=== PATIENT | female | born 1995 | race Caucasian/White ===

== ENCOUNTER 2020-03-09 09:29 | Inpatient (IN) | payer MEDICAID ==
[2020-03-09] MEDS ORDERED: Sodium Chloride 0.9% 2.5 ML Syringe FLUSH PRN (13:37)
[2020-03-09] MEDS ORDERED: Sodium Chloride 0.9% 10 ML SDV IV PRN (13:37)
[2020-03-09] MEDS ORDERED: Nalbuphine 10 MG/1 ML Vial IVPUSH PRN (13:37)
[2020-03-09] MEDS ORDERED: Tranexamic Acid 1,000 MG in Sodium Chloride 0.9% 100 ML IV PRN ×2 (13:37→23:15)
[2020-03-09] MEDS ORDERED: Carboprost Tromethamine 250 MCG/1 ML Amp IM PRN (13:37)
[2020-03-09] MEDS ORDERED: Sodium Chloride 0.9% 10 ML Syringe FLUSH PRN (13:37)
[2020-03-09] MEDS ORDERED: Misoprostol 200 MCG Tab PO PRN (13:37)
[2020-03-09] MEDS ORDERED: Methylergonovine 0.2 MG/1 ML Amp IM PRN ×2 (13:37→23:15)
[2020-03-09] MEDS ORDERED: Lidocaine 1% 50 ML MDV INJECT PRN (13:37)
[2020-03-09] MEDS ORDERED: Butorphanol 1 MG/ML SDV IVPUSH PRN (13:37)
[2020-03-09] MEDS ORDERED: Water For Irrigation,Sterile 1,000 ML Container IRR PRN (13:37)
[2020-03-09] MEDS ORDERED: Oxytocin/0.9 % Sodium Chloride 30 UNIT/500 ML BAG IV SCH ×2 (13:45→20:15)
[2020-03-09] MEDS ORDERED: Ampicillin 2 GM in Sodium Chloride 0.9% 100 ML IV ONE (14:00)
[2020-03-09] MEDS: Lactated Ringers 1,000 ML IV SCH ×4 (14:05→19:36)
--- NOTE | 2020-03-09 14:10 | HP ---
DATE OF : 1995 PRIMARY CARE PHYSICIAN: None PCP CHIEF COMPLAINT: Contractions. HISTORY OF PRESENT ILLNESS: This is a 24-year-old female, G3, P 2-0-0-2. She presents at 38-6/7 weeks' gestation in active spontaneous labor. No loss of fluid. Good movement. She has had no care save for one visit in [place] where she states that she did have labs drawn as well as an ultrasound which confirmed her due date. Those records have been requested, but are pending. She has not had any group B strep culture obtained. She has had two prior vaginal deliveries, which have been uncomplicated. PAST MEDICAL HISTORY: Significant for MRSA on her right thigh and a recent tooth abscess. PAST SURGICAL HISTORY: I and D of a skin lesion. ALLERGIES: None known. MEDICATIONS: Keflex 500 mg t.i.d. for a tooth abscess. SOCIAL HISTORY: She is single, sexually active. She denies use of alcohol or street drugs. She does smoke less than a pack per day. She denies any concern about domestic violence. She has a 1 and a 2-year-old, both of whom are in her custody. The older child has the same father of the baby as this . FAMILY HISTORY: Negative for genetic disorders affecting newborns. REVIEW OF SYSTEMS: Negative for headache, visual changes. Negative for cough, shortness of breath, chest pain, dyspnea on exertion. Negative for dermatologic changes. Negative for GI, , rheumatologic, or musculoskeletal issues. PHYSICAL EXAMINATION: VITAL SIGNS: Blood pressure is 117/68, pulse is 114. heart tones are 120s with moderate variability, accelerations present, no decelerations. Contractions are every 5 to 7 minutes. GENERAL: She is alert and oriented. She is in no acute distress. NECK: Supple without lymphadenopathy or thyromegaly. LUNGS: Clear bilaterally. CARDIOVASCULAR: Regular rate without murmur. ABDOMEN: Soft, gravid, nontender. Fundal height is appropriate for gestational age. EXTREMITIES: Show trace edema. VAGINAL EXAM: 5 cm, 80%, minus 2 station. Cephalic presentation. ASSESSMENT AND PLAN: A 38-6/7 weeks' active spontaneous labor with essentially no care. Records from one visit in [place] have been obtained. New OB labs will be obtained upon admission. Group B strep culture is obtained upon admission, and she will be started on ampicillin for group B strep prophylaxis. She requests epidural, and once laboratory studies are available, this can be initiated. Admit for labor management. DORY / LEZA /[id number]
--- NOTE | 2020-03-09 15:12 | PCM.PREANE ---
Preanesthetic Assessment - Anesthesia/Transfusion/Family Hx Anesthesia History: No Prior Anesthesia Family History of Anesthesia Reaction: No Transfusion History: No Prior Transfusion(s) - Review of Systems General: No Symptoms Pulmonary: No Symptoms Cardiovascular: No Symptoms Gastrointestinal: No Symptoms Neurological: No Symptoms Other: Reports: None - Physical Assessment Height: 5 ft Weight: 79.379 kg (estimate) ASA Class: 2 Mental Status: Alert & Oriented x3 Airway Class: Mallampati = 1 Dentition: Reports: Normal Dentition Thyro-Mental Finger Breadths: 3 ROM/Head Extension: Full Lungs: Clear to Auscultation, Normal Respiratory Effort Cardiovascular: Regular Rate, Regular Rhythm Other: - 38 weeks in spontaneous labor - Lab Values: Laboratory Last Values WBC 18.42 K/uL (4.0-11.0) H 03/09/20 13:20 RBC 4.29 M/uL (4.30-5.90) L 03/09/20 13:20 Hgb 10.0 g/dL (12.0-16.0) L 03/09/20 13:20 Hct 32.7 % (36.0-46.0) L 03/09/20 13:20 MCV 76.2 fL (80.0-98.0) L 03/09/20 13:20 MCH 23.3 pg (27.0-32.0) L 03/09/20 13:20 MCHC 30.6 g/dL (31.0-37.0) L 03/09/20 13:20 RDW Std Deviation 44.5 fl (28.0-62.0) 03/09/20 13:20 RDW Coeff of Sander 16 % (11.0-15.0) H 03/09/20 13:20 Plt Count 229 K/uL (150-400) 03/09/20 13:20 MPV 11.40 fL (7.40-12.00) 03/09/20 13:20 Add Manual Diff YES 03/09/20 13:20 Neutrophils % (Manual) 68 % (48.0-80.0) 03/09/20 13:20 Band Neutrophils % 1 % 03/09/20 13:20 Lymphocytes % (Manual) 17 % (16.0-40.0) 03/09/20 13:20 Monocytes % (Manual) 7 % (0.0-15.0) 03/09/20 13:20 Eosinophils % (Manual) 1 % (0.0-7.0) 03/09/20 13:20 Basophils % (Manual) 2 % (0.0-1.5) H 03/09/20 13:20 Metamyelocytes % 1 % 03/09/20 13:20 Myelocytes % 3 % 03/09/20 13:20 Nucleated RBC % 0.0 /100WBC 03/09/20 13:20 Absolute Seg Neuts 12.5 (1.4-5.7) H 03/09/20 13:20 Band Neutrophils # 0.2 03/09/20 13:20 Lymphocytes # (Manual) 3.1 (0.6-2.4) H 03/09/20 13:20 Monocytes # (Manual) 1.3 (0.0-0.8) H 03/09/20 13:20 Eosinophils # (Manual) 0.2 (0.0-0.7) 03/09/20 13:20 Basophils # (Manual) 0.4 (0.0-0.1) H 03/09/20 13:20 Absolute Metamyelocyte 0.2 03/09/20 13:20 Absolute Myelocytes 0.6 03/09/20 13:20 Nucleated RBCs # 0 K/uL 03/09/20 13:20 - Allergies Allergies/Adverse Reactions: Allergies Allergy/AdvReac Type Severity Reaction Status Date / Time No Known Allergies Allergy Verified 03/09/20 13:41 - Acknowledgements Anesthesia Type Planned: Epidural Pt an Appropriate Candidate for the Planned Anesthesia: Yes Alternatives and Risks of Anesthesia Discussed w Pt/Guardian: Yes Pt/Guardian Understands and Agrees with Anesthesia Plan: Yes PreAnesthesia Questionnaire - CURRENT (IN HOUSE) MEDS Current Meds: Current Medications Butorphanol Tartrate (Stadol) 1 mg IVPUSH Q1H PRN PRN Reason: Pain Carboprost Tromethamine (Hemabate Ds) 250 mcg IM ASDIRECTED PRN PRN Reason: Post Hemorrhage Ampicillin Sodium 1 gm/ Sodium (Chloride) 50 mls @ 100 mls/hr IV Q4H [facility] Tranexamic Acid 1,000 mg/ (Sodium Chloride) 110 mls @ 660 mls/hr IV ONETIME PRN PRN Reason: Bleeding Lactated Ringer's (Ringers, Lactated) 1,000 mls @ 150 mls/hr IV ASDIRECTED [facility] Last Admin: 03/09/20 14:05 Dose: 500 mls/hr Oxytocin/Sodium Chloride (Oxytocin 30 Unit/500 Ml-Ns) 30 unit in 500 mls @ 999 mls/hr IV TITRATE [facility] Lidocaine HCl (Xylocaine 1%) 50 ml INJECT ONETIME PRN PRN Reason: Laceration repair Methylergonovine Maleate (Methergine) 0.2 mg IM ASDIRECTED PRN PRN Reason: Post Hemorrhage Misoprostol (Cytotec) 200 mcg PO ONETIME PRN PRN Reason: Post Hemorrhage Nalbuphine HCl (Nubain) 10 mg IVPUSH Q1H PRN PRN Reason: Pain (severe 7-10) Sodium Chloride (Saline Flush) 10 ml FLUSH ASDIRECTED PRN PRN Reason: Keep Vein Open Sodium Chloride (Saline Flush) 2.5 ml FLUSH ASDIRECTED PRN PRN Reason: Keep Vein Open Sodium Chloride (Normal Saline) 10 ml IV ASDIRECTED PRN PRN Reason: IV Use Sterile Water (Sterile Water For Irrigation) 1,000 ml IRR ASDIRECTED PRN PRN Reason: delivery Discontinued Medications Ampicillin Sodium 2 gm/ Sodium (Chloride) 100 mls @ 200 mls/hr IV ONETIME ONE Stop: 03/09/20 14:29 Fentanyl/Bupivacaine HCl (Iehxowhn-Tcfht-Uq 2 Mcg/Ml-0.125%) Confirm Administered Dose 100 mls @ as directed .ROUTE .STK-MED ONE Stop: 03/09/20 14:31
[2020-03-09] MEDS: Ampicillin 1 GM in Sodium Chloride 0.9% 50 ML IV SCH (19:05)
--- NOTE | 2020-03-09 23:14 | PCM.DEL ---
L & D Note - General Info Date of Service: 03/09/20 Mother's Due Date: 03/17/20 - Delivery Note Labor: Spontaneous, Augmented by Oxytocin Delivery Outcome: Livebirth Infant Delivery Method: Spontaneous Vaginal Delivery-Single Infant Delivery Mode: Spontaneous Presentation: Left Occiput Anterior (DOUG) Nuchal Cord: None Prep: Other Anesthesia Type: Epidural, Local Local Anesthetic Volume: 5cc Amniotic Fluid Description: Clear Episiotomy Type: None Laceration: 1st Degree Suture type: Vicryl Suture size: 3-0 Placenta: Intact, Spontaneous Cord: 3 Vessels Estimated Blood Loss: 200 Resuscitation Needed: No : Suctioned Score 1 min: 8 Score 5 min: 9 Delivery Comments (Free Text/Narrative):: presented with minimal care ([place]), active labor, augmented, TSVD liveborn female weight 3120 grams. - General Info Date of Service: 03/09/20 - Patient Data Weight - Most Recent: 68.946 kg Lab Results Last 24 Hours: Laboratory Results - last 24 hr 03/09/20 03/09/20 03/09/20 Range/Units 09:35 09:35 13:20 WBC 18.42 H (4.0-11.0) K/uL RBC 4.29 L (4.30-5.90) M/uL Hgb 10.0 L (12.0-16.0) g/dL Hct 32.7 L (36.0-46.0) % MCV 76.2 L (80.0-98.0) fL MCH 23.3 L (27.0-32.0) pg MCHC 30.6 L (31.0-37.0) g/dL RDW Std Deviation 44.5 (28.0-62.0) fl RDW Coeff of Sander 16 H (11.0-15.0) % Plt Count 229 (150-400) K/uL MPV 11.40 (7.40-12.00) fL Add Manual Diff YES Neutrophils % (Manual) 68 (48.0-80.0) % Band Neutrophils % 1 % Lymphocytes % (Manual) 17 (16.0-40.0) % Monocytes % (Manual) 7 (0.0-15.0) % Eosinophils % (Manual) 1 (0.0-7.0) % Basophils % (Manual) 2 H (0.0-1.5) % Metamyelocytes % 1 % Myelocytes % 3 % Nucleated RBC % 0.0 /100WBC Absolute Seg Neuts 12.5 H (1.4-5.7) Band Neutrophils # 0.2 Lymphocytes # (Manual) 3.1 H (0.6-2.4) Monocytes # (Manual) 1.3 H (0.0-0.8) Eosinophils # (Manual) 0.2 (0.0-0.7) Basophils # (Manual) 0.4 H (0.0-0.1) Absolute Metamyelocyte 0.2 Absolute Myelocytes 0.6 Nucleated RBCs # 0 K/uL Urine Color YELLOW Urine Appearance HAZY Urine pH 7.0 (5.0-8.0) Ur Specific [place] 1.010 (1.001-1.035) Urine Protein NEGATIVE (NEGATIVE) mg/dL Urine Glucose (UA) NEGATIVE (NEGATIVE) mg/dL Urine Ketones NEGATIVE (NEGATIVE) mg/dL Urine Occult Blood TRACE-INTACT H (NEGATIVE) Urine Nitrite NEGATIVE (NEGATIVE) Urine Bilirubin NEGATIVE (NEGATIVE) Urine Urobilinogen 0.2 (<2.0) EU/dL Ur Leukocyte Esterase SMALL H (NEGATIVE) Urine Opiates Screen NEGATIVE (NEGATIVE) Ur Oxycodone Screen NEGATIVE (NEGATIVE) Urine Methadone Screen NEGATIVE (NEGATIVE) Ur Barbiturates Screen NEGATIVE (NEGATIVE) Ur Phencyclidine Scrn NEGATIVE (NEGATIVE) Ur Amphetamine Screen NEGATIVE (NEGATIVE) U Methamphetamines Scrn NEGATIVE (NEGATIVE) U Benzodiazepines Scrn NEGATIVE (NEGATIVE) U Cocaine Metab Screen NEGATIVE (NEGATIVE) U Marijuana (THC) Screen POSITIVE (NEGATIVE) Hep Bs Antigen Index (<1.0) INDEX Hep Bs Antibody Index mIU/mL HIV 1&2 Ag/Ab, 4th Gen (<1.0) INDEX Rubella IgG Ab Index IU/mL Blood Type Antibody Screen 03/09/20 03/09/20 Range/Units 13:20 13:20 WBC (4.0-11.0) K/uL RBC (4.30-5.90) M/uL Hgb (12.0-16.0) g/dL Hct (36.0-46.0) % MCV (80.0-98.0) fL MCH (27.0-32.0) pg MCHC (31.0-37.0) g/dL RDW Std Deviation (28.0-62.0) fl RDW Coeff of Sander (11.0-15.0) % Plt Count (150-400) K/uL MPV (7.40-12.00) fL Add Manual Diff Neutrophils % (Manual) (48.0-80.0) % Band Neutrophils % % Lymphocytes % (Manual) (16.0-40.0) % Monocytes % (Manual) (0.0-15.0) % Eosinophils % (Manual) (0.0-7.0) % Basophils % (Manual) (0.0-1.5) % Metamyelocytes % % Myelocytes % % Nucleated RBC % /100WBC Absolute Seg Neuts (1.4-5.7) Band Neutrophils # Lymphocytes # (Manual) (0.6-2.4) Monocytes # (Manual) (0.0-0.8) Eosinophils # (Manual) (0.0-0.7) Basophils # (Manual) (0.0-0.1) Absolute Metamyelocyte Absolute Myelocytes Nucleated RBCs # K/uL Urine Color Urine Appearance Urine pH (5.0-8.0) Ur Specific [place] (1.001-1.035) Urine Protein (NEGATIVE) mg/dL Urine Glucose (UA) (NEGATIVE) mg/dL Urine Ketones (NEGATIVE) mg/dL Urine Occult Blood (NEGATIVE) Urine Nitrite (NEGATIVE) Urine Bilirubin (NEGATIVE) Urine Urobilinogen (<2.0) EU/dL Ur Leukocyte Esterase (NEGATIVE) Urine Opiates Screen (NEGATIVE) Ur Oxycodone Screen (NEGATIVE) Urine Methadone Screen (NEGATIVE) Ur Barbiturates Screen (NEGATIVE) Ur Phencyclidine Scrn (NEGATIVE) Ur Amphetamine Screen (NEGATIVE) U Methamphetamines Scrn (NEGATIVE) U Benzodiazepines Scrn (NEGATIVE) U Cocaine Metab Screen (NEGATIVE) U Marijuana (THC) Screen (NEGATIVE) Hep Bs Antigen Index < 0.1 (<1.0) INDEX Hep Bs Antibody Index 8.0 mIU/mL HIV 1&2 Ag/Ab, 4th Gen < 0.1 (<1.0) INDEX Rubella IgG Ab Index 191.0 IU/mL Blood Type A POSITIVE Antibody Screen NEGATIVE Med Orders - Current: Current Medications Butorphanol Tartrate (Stadol) 1 mg IVPUSH Q1H PRN PRN Reason: Pain Carboprost Tromethamine (Hemabate Ds) 250 mcg IM ASDIRECTED PRN PRN Reason: Post Hemorrhage Ampicillin Sodium 1 gm/ Sodium (Chloride) 50 mls @ 100 mls/hr IV Q4H [facility] Last Admin: 03/09/20 19:05 Dose: 100 mls/hr Tranexamic Acid 1,000 mg/ (Sodium Chloride) 110 mls @ 660 mls/hr IV ONETIME PRN PRN Reason: Bleeding Lactated Ringer's (Ringers, Lactated) 1,000 mls @ 150 mls/hr IV ASDIRECTED [facility] Last Admin: 03/09/20 19:36 Dose: 150 mls/hr Oxytocin/Sodium Chloride (Oxytocin 30 Unit/500 Ml-Ns) 30 unit in 500 mls @ 999 mls/hr IV TITRATE [facility] Oxytocin/Sodium Chloride (Oxytocin 30 Unit/500 Ml-Ns) 30 unit in 500 mls @ 2 mls/hr IV TITRATE [facility]; Protocol Last Infusion: 03/09/20 21:52 Dose: 8 munits/min, 8 mls/hr Lidocaine HCl (Xylocaine 1%) 50 ml INJECT ONETIME PRN PRN Reason: Laceration repair Methylergonovine Maleate (Methergine) 0.2 mg IM ASDIRECTED PRN PRN Reason: Post Hemorrhage Misoprostol (Cytotec) 200 mcg PO ONETIME PRN PRN Reason: Post Hemorrhage Nalbuphine HCl (Nubain) 10 mg IVPUSH Q1H PRN PRN Reason: Pain (severe 7-10) Sodium Chloride (Saline Flush) 10 ml FLUSH ASDIRECTED PRN PRN Reason: Keep Vein Open Sodium Chloride (Saline Flush) 2.5 ml FLUSH ASDIRECTED PRN PRN Reason: Keep Vein Open Sodium Chloride (Normal Saline) 10 ml IV ASDIRECTED PRN PRN Reason: IV Use Sterile Water (Sterile Water For Irrigation) 1,000 ml IRR ASDIRECTED PRN PRN Reason: delivery Discontinued Medications Ampicillin Sodium 2 gm/ Sodium (Chloride) 100 mls @ 200 mls/hr IV ONETIME ONE Stop: 03/09/20 14:29 Last Admin: 03/09/20 15:00 Dose: 200 mls/hr Fentanyl/Bupivacaine HCl (Pnvmlfsh-Omgbi-Dy 2 Mcg/Ml-0.125%) Confirm Administered Dose 100 mls @ as directed .ROUTE .STK-MED ONE Stop: 03/09/20 14:31 - Problem List & Annotations (1) Vaginal delivery SNOMED Code(s): 686661734 Code(s): O80 - ENCOUNTER FOR FULL-TERM UNCOMPLICATED DELIVERY Status: Acute Current Visit: Yes - Problem List Review Problem List Initiated/Reviewed/Updated: Yes - My Orders Last 24 Hours: My Active Orders 03/09/20 09:35 CHLAMYDIA AND GONORRHEA BY TMA Routine 03/09/20 10:23 Non Stress Test [RC] PER UNIT ROUTINE Up ad Kristine [RC] ASDIRECTED Vaginal Exam [RC] Click to Edit Vital Signs [RC] PER UNIT ROUTINE Resuscitation Status Routine 03/09/20 13:20 RPR (SYPHILIS SERO) W/ RFLX [REF] Routine 03/09/20 13:25 CULTURE GROUP B STREP [RM] Routine 03/09/20 13:37 Patient Status [ADT] Routine Heart Tones [RC] CONTINUOUS May Shower [RC] ASDIRECTED Notify Provider [RC] PRN Peripheral IV Care [RC] . DIRECTED Butorphanol [Stadol] 1 mg IVPUSH Q1H PRN Carboprost Tromethamine [Hemabate DS] 250 mcg IM ASDIRECTED PRN Lidocaine 1% [Xylocaine 1%] 50 ml INJECT ONETIME PRN Methylergonovine [Methergine] 0.2 mg IM ASDIRECTED PRN Nalbuphine [Nubain] 10 mg IVPUSH Q1H PRN Sodium Chloride 0.9% [Normal Saline] 10 ml IV ASDIRECTED PRN Sodium Chloride 0.9% [Saline Flush] 10 ml FLUSH ASDIRECTED PRN Sodium Chloride 0.9% [Saline Flush] 2.5 ml FLUSH ASDIRECTED PRN Tranexamic Acid [Cyklokapron] 1,000 mg Sodium Chloride 0.9% [Normal Saline] 100 ml IV ONETIME Water For Irrigation,Sterile [Sterile Water for Irrigation] 1,000 ml IRR ASDIRECTED PRN miSOPROStoL [Cytotec] 200 mcg PO ONETIME PRN Scalp Electrode [WOMSER] Per Unit Routine OB Panel [OM.PC] Urgent Peripheral IV Insertion Adult [OM.PC] Routine 03/09/20 13:45 Lactated Ringers [Ringers, Lactated] 1,000 ml IV ASDIRECTED Oxytocin/0.9 % Sodium Chloride [Oxytocin 30 Unit/500 ML-NS] 30 unit in 500 ml IV TITRATE 03/09/20 18:00 Ampicillin 1 gm Sodium Chloride 0.9% [Normal Saline] 50 ml IV Q4H 03/09/20 20:15 Oxytocin/0.9 % Sodium Chloride [Oxytocin 30 Unit/500 ML-NS] 30 unit in 500 ml IV TITRATE 03/09/20 Lunch Clear Liquid Diet [DIET]
[2020-03-09] MEDS ORDERED: Bisacodyl 10 MG Supp RECTAL PRN (23:15)
[2020-03-09] MEDS ORDERED: Ibuprofen 400 MG Tab PO PRN (23:15)
[2020-03-09] MEDS ORDERED: Witch Hazel Medicated Pads 40/Jar TOP PRN (23:15)
[2020-03-09] MEDS ORDERED: Benzocaine/Menthol 20%-0.5% Spray 78 GM Cannister TOP PRN (23:15)
[2020-03-09] MEDS ORDERED: Ibuprofen 800 MG Tab PO PRN (23:15)
[2020-03-09] MEDS ORDERED: oxyCODONE 5 MG Tab PO PRN (23:15)
[2020-03-09] MEDS ORDERED: Acetaminophen 500 MG Tab PO PRN (23:15)
[2020-03-09] MEDS ORDERED: Lanolin 100% Cream 7 GM Tube TOP PRN (23:15)
[2020-03-09] MEDS ORDERED: Docusate Sodium 100 MG Cap PO PRN (23:15)
--- NOTE | 2020-03-10 01:11 | OR ---
SURGEON: An Suárez M.D. DATE OF PROCEDURE: 03/09/2020 PREOPERATIVE DIAGNOSES: 38-6/7 weeks' intrauterine , active spontaneous labor. POSTOPERATIVE DIAGNOSES: 38-6/7 weeks' intrauterine , active spontaneous labor. PROCEDURE: Group B strep prophylaxis, Pitocin augmentation of labor, artificial rupture of membranes, term spontaneous vaginal delivery, repair of first-degree laceration. PRIMARY SURGEON: An Suárez M.D. ANESTHESIA: Epidural and local. ESTIMATED BLOOD LOSS: Less than 200 mL. FINDINGS: Liveborn female. scores 8 and 9. Weighing 3120 g. Placenta spontaneous, Schultze intact with 3 vessels. First-degree perineal laceration repaired. No other lacerations are identified. COMPLICATIONS: None known. DISPOSITION: Mother and baby in LDR in good condition. BRIEF HISTORY: This is a 24-year-old female, G3, P2, who presents at 38-6/7 weeks' gestation with very limited care with one visit in [place]. Records were able to be obtained. This did confirm her EDC, and she presented in active labor, initially 3 to 4 cm, then changed to 4 to 5 cm. She was admitted. She had unknown group B strep status. Therefore, she was started on ampicillin after group B strep culture was obtained and she received an epidural for pain control. After a 2nd dose of ampicillin, she was 6 cm dilated, 80%, -3 station. Artificial rupture of membranes was performed with clear fluid noted. She had slow progress and therefore was started on Pitocin and progressed to complete. DESCRIPTION OF PROCEDURE: With the patient in dorsal lithotomy position, the patient pushed over 1 contraction to a 5+ station at which time the head was delivered spontaneously and atraumatically over the perineum with support with subsequent delivery of the infant's shoulders and body without any difficulty. The was bulb suctioned by nose and mouth and handed to the mother in the presence of the nurse attending delivery. The infant was a liveborn female. scores 8 and 9. Weighing 3120 g. After the cord had ceased to pulsate, it was doubly clamped and cut. Cord blood was collected for cord ABGs as well as routine cord blood sampling. Pitocin was initiated after delivery of the to assist with delivery of the placenta, which was delivered spontaneously. Schultze intact with 3 vessels. Upon inspection of the pelvis and perineum, there were no periurethral, vaginal sidewall, cervical, or rectal lacerations. There was a small first-degree perineal laceration. 5 mL of 1% lidocaine was injected into the tissue. She had minimal pain relief with her epidural by the end of delivery. 3-0 Vicryl was used in a running subcuticular fashion to reapproximate the skin. Final sponge, needle, and instrument counts were correct. There were no known complications. Mother and baby are in LDR in good condition. DORY BERTRAND /[id number]
[2020-03-10] MEDS: Acetaminophen 500 MG Tab PO PRN ×2 (03:09→20:46)
--- NOTE | 2020-03-10 07:44 | PCM48HPAN ---
Post Anesthesia Note - EVALUATION WITHIN 48HRS OF ANESTHETIC Vital Signs in Normal Range: Yes Patient Participated in Evaluation: Yes Respiratory Function Stable: Yes Airway Patent: Yes Cardiovascular Function Stable: Yes Hydration Status Stable: Yes Pain Control Satisfactory: Yes Nausea and Vomiting Control Satisfactory: Yes Mental Status Recovered: Yes Vital Signs: Last Vital Signs Temp 36.3 C 03/10/20 04:04 Pulse 94 03/10/20 04:04 Resp 14 03/10/20 04:04 BP 104/68 03/10/20 04:04 Pulse Ox 98 03/10/20 04:04 - COMMENTS/OBSERVATIONS Free Text/Narrative:: Denies any complaints
--- NOTE | 2020-03-10 10:38 | PCM.PNPP ---
- General Info Date of Service: 03/10/20 Functional Status: Reports: Pain Controlled, Tolerating Diet, Ambulating, Urinating - Review of Systems General: Reports: No Symptoms HEENT: Reports: No Symptoms Pulmonary: Reports: No Symptoms Cardiovascular: Reports: No Symptoms Gastrointestinal: Reports: No Symptoms Genitourinary: Reports: No Symptoms Musculoskeletal: Reports: No Symptoms Skin: Reports: No Symptoms Neurological: Reports: No Symptoms Psychiatric: Reports: No Symptoms - Patient Data Vital Signs - Most Recent: Last Vital Signs Temp 36.3 C 03/10/20 04:04 Pulse 94 03/10/20 04:04 Resp 14 03/10/20 04:04 BP 104/68 03/10/20 04:04 Pulse Ox 98 03/10/20 04:04 Weight - Most Recent: 68.946 kg Lab Results - Last 24 Hours: Laboratory Results - last 24 hr 03/09/20 03/09/20 03/09/20 Range/Units 09:35 09:35 13:20 WBC 18.42 H (4.0-11.0) K/uL RBC 4.29 L (4.30-5.90) M/uL Hgb 10.0 L (12.0-16.0) g/dL Hct 32.7 L (36.0-46.0) % MCV 76.2 L (80.0-98.0) fL MCH 23.3 L (27.0-32.0) pg MCHC 30.6 L (31.0-37.0) g/dL RDW Std Deviation 44.5 (28.0-62.0) fl RDW Coeff of Sander 16 H (11.0-15.0) % Plt Count 229 (150-400) K/uL MPV 11.40 (7.40-12.00) fL Add Manual Diff YES Neutrophils % (Manual) 68 (48.0-80.0) % Band Neutrophils % 1 % Lymphocytes % (Manual) 17 (16.0-40.0) % Monocytes % (Manual) 7 (0.0-15.0) % Eosinophils % (Manual) 1 (0.0-7.0) % Basophils % (Manual) 2 H (0.0-1.5) % Metamyelocytes % 1 % Myelocytes % 3 % Nucleated RBC % 0.0 /100WBC Absolute Seg Neuts 12.5 H (1.4-5.7) Band Neutrophils # 0.2 Lymphocytes # (Manual) 3.1 H (0.6-2.4) Monocytes # (Manual) 1.3 H (0.0-0.8) Eosinophils # (Manual) 0.2 (0.0-0.7) Basophils # (Manual) 0.4 H (0.0-0.1) Absolute Metamyelocyte 0.2 Absolute Myelocytes 0.6 Nucleated RBCs # 0 K/uL Cord ABG pH (7.18-7.38) Cord ABG Base Excess (-10--2) Cord VBG pH (7.25-7.45) Cord VBG Base Excess (-10--2) Urine Color YELLOW Urine Appearance HAZY Urine pH 7.0 (5.0-8.0) Ur Specific [place] 1.010 (1.001-1.035) Urine Protein NEGATIVE (NEGATIVE) mg/dL Urine Glucose (UA) NEGATIVE (NEGATIVE) mg/dL Urine Ketones NEGATIVE (NEGATIVE) mg/dL Urine Occult Blood TRACE-INTACT H (NEGATIVE) Urine Nitrite NEGATIVE (NEGATIVE) Urine Bilirubin NEGATIVE (NEGATIVE) Urine Urobilinogen 0.2 (<2.0) EU/dL Ur Leukocyte Esterase SMALL H (NEGATIVE) Urine Opiates Screen NEGATIVE (NEGATIVE) Ur Oxycodone Screen NEGATIVE (NEGATIVE) Urine Methadone Screen NEGATIVE (NEGATIVE) Ur Barbiturates Screen NEGATIVE (NEGATIVE) Ur Phencyclidine Scrn NEGATIVE (NEGATIVE) Ur Amphetamine Screen NEGATIVE (NEGATIVE) U Methamphetamines Scrn NEGATIVE (NEGATIVE) U Benzodiazepines Scrn NEGATIVE (NEGATIVE) U Cocaine Metab Screen NEGATIVE (NEGATIVE) U Marijuana (THC) Screen POSITIVE (NEGATIVE) Hep Bs Antigen Index (<1.0) INDEX Hep Bs Antibody Index mIU/mL HIV 1&2 Ag/Ab, 4th Gen (<1.0) INDEX Rubella IgG Ab Index IU/mL Blood Type Antibody Screen 03/09/20 03/09/20 03/09/20 Range/Units 13:20 13:20 22:47 WBC (4.0-11.0) K/uL RBC (4.30-5.90) M/uL Hgb (12.0-16.0) g/dL Hct (36.0-46.0) % MCV (80.0-98.0) fL MCH (27.0-32.0) pg MCHC (31.0-37.0) g/dL RDW Std Deviation (28.0-62.0) fl RDW Coeff of Sander (11.0-15.0) % Plt Count (150-400) K/uL MPV (7.40-12.00) fL Add Manual Diff Neutrophils % (Manual) (48.0-80.0) % Band Neutrophils % % Lymphocytes % (Manual) (16.0-40.0) % Monocytes % (Manual) (0.0-15.0) % Eosinophils % (Manual) (0.0-7.0) % Basophils % (Manual) (0.0-1.5) % Metamyelocytes % % Myelocytes % % Nucleated RBC % /100WBC Absolute Seg Neuts (1.4-5.7) Band Neutrophils # Lymphocytes # (Manual) (0.6-2.4) Monocytes # (Manual) (0.0-0.8) Eosinophils # (Manual) (0.0-0.7) Basophils # (Manual) (0.0-0.1) Absolute Metamyelocyte Absolute Myelocytes Nucleated RBCs # K/uL Cord ABG pH 7.425 H (7.18-7.38) Cord ABG Base Excess -2 (-10--2) Cord VBG pH 7.372 (7.25-7.45) Cord VBG Base Excess -2 (-10--2) Urine Color Urine Appearance Urine pH (5.0-8.0) Ur Specific [place] (1.001-1.035) Urine Protein (NEGATIVE) mg/dL Urine Glucose (UA) (NEGATIVE) mg/dL Urine Ketones (NEGATIVE) mg/dL Urine Occult Blood (NEGATIVE) Urine Nitrite (NEGATIVE) Urine Bilirubin (NEGATIVE) Urine Urobilinogen (<2.0) EU/dL Ur Leukocyte Esterase (NEGATIVE) Urine Opiates Screen (NEGATIVE) Ur Oxycodone Screen (NEGATIVE) Urine Methadone Screen (NEGATIVE) Ur Barbiturates Screen (NEGATIVE) Ur Phencyclidine Scrn (NEGATIVE) Ur Amphetamine Screen (NEGATIVE) U Methamphetamines Scrn (NEGATIVE) U Benzodiazepines Scrn (NEGATIVE) U Cocaine Metab Screen (NEGATIVE) U Marijuana (THC) Screen (NEGATIVE) Hep Bs Antigen Index < 0.1 (<1.0) INDEX Hep Bs Antibody Index 8.0 mIU/mL HIV 1&2 Ag/Ab, 4th Gen < 0.1 (<1.0) INDEX Rubella IgG Ab Index 191.0 IU/mL Blood Type A POSITIVE Antibody Screen NEGATIVE 03/10/20 Range/Units 05:43 WBC (4.0-11.0) K/uL RBC (4.30-5.90) M/uL Hgb 9.5 L (12.0-16.0) g/dL Hct 31.5 L (36.0-46.0) % MCV (80.0-98.0) fL MCH (27.0-32.0) pg MCHC (31.0-37.0) g/dL RDW Std Deviation (28.0-62.0) fl RDW Coeff of Sander (11.0-15.0) % Plt Count (150-400) K/uL MPV (7.40-12.00) fL Add Manual Diff Neutrophils % (Manual) (48.0-80.0) % Band Neutrophils % % Lymphocytes % (Manual) (16.0-40.0) % Monocytes % (Manual) (0.0-15.0) % Eosinophils % (Manual) (0.0-7.0) % Basophils % (Manual) (0.0-1.5) % Metamyelocytes % % Myelocytes % % Nucleated RBC % /100WBC Absolute Seg Neuts (1.4-5.7) Band Neutrophils # Lymphocytes # (Manual) (0.6-2.4) Monocytes # (Manual) (0.0-0.8) Eosinophils # (Manual) (0.0-0.7) Basophils # (Manual) (0.0-0.1) Absolute Metamyelocyte Absolute Myelocytes Nucleated RBCs # K/uL Cord ABG pH (7.18-7.38) Cord ABG Base Excess (-10--2) Cord VBG pH (7.25-7.45) Cord VBG Base Excess (-10--2) Urine Color Urine Appearance Urine pH (5.0-8.0) Ur Specific [place] (1.001-1.035) Urine Protein (NEGATIVE) mg/dL Urine Glucose (UA) (NEGATIVE) mg/dL Urine Ketones (NEGATIVE) mg/dL Urine Occult Blood (NEGATIVE) Urine Nitrite (NEGATIVE) Urine Bilirubin (NEGATIVE) Urine Urobilinogen (<2.0) EU/dL Ur Leukocyte Esterase (NEGATIVE) Urine Opiates Screen (NEGATIVE) Ur Oxycodone Screen (NEGATIVE) Urine Methadone Screen (NEGATIVE) Ur Barbiturates Screen (NEGATIVE) Ur Phencyclidine Scrn (NEGATIVE) Ur Amphetamine Screen (NEGATIVE) U Methamphetamines Scrn (NEGATIVE) U Benzodiazepines Scrn (NEGATIVE) U Cocaine Metab Screen (NEGATIVE) U Marijuana (THC) Screen (NEGATIVE) Hep Bs Antigen Index (<1.0) INDEX Hep Bs Antibody Index mIU/mL HIV 1&2 Ag/Ab, 4th Gen (<1.0) INDEX Rubella IgG Ab Index IU/mL Blood Type Antibody Screen Med Orders - Current: Current Medications Acetaminophen (Tylenol Extra Strength) 500 mg PO Q4H PRN PRN Reason: Pain Acetaminophen (Tylenol Extra Strength) 1,000 mg PO Q4H PRN PRN Reason: Pain Last Admin: 03/10/20 03:09 Dose: 1,000 mg Benzocaine/Menthol (Dermoplast Pain Relief 20%-0.5% Cache) 78 gm TOP ASDIRECTED PRN PRN Reason: Perineal Comfort Measure Bisacodyl (Dulcolax) 10 mg RECTAL ONETIME PRN PRN Reason: Constipation Docusate Sodium (Colace) 100 mg PO BID PRN PRN Reason: Constipation Emollient Ointment (Lansinoh Hpa) 0 gm TOP ASDIRECTED PRN PRN Reason: Sore Nipples Tranexamic Acid 1,000 mg/ (Sodium Chloride) 110 mls @ 660 mls/hr IV ONETIME PRN PRN Reason: Bleeding Ibuprofen (Motrin) 400 mg PO Q4H PRN PRN Reason: Pain Ibuprofen (Motrin) 800 mg PO Q6H PRN PRN Reason: Pain Last Admin: 03/10/20 09:12 Dose: 800 mg Methylergonovine Maleate (Methergine) 0.2 mg IM ONETIME PRN PRN Reason: Excessive Vaginal Bleeding Oxycodone HCl (Oxycodone) 5 mg PO Q2H PRN PRN Reason: Pain Witch Anna (Tucks) 1 pad TOP ASDIRECTED PRN PRN Reason: comfort care Discontinued Medications Butorphanol Tartrate (Stadol) 1 mg IVPUSH Q1H PRN PRN Reason: Pain Carboprost Tromethamine (Hemabate Ds) 250 mcg IM ASDIRECTED PRN PRN Reason: Post Hemorrhage Ampicillin Sodium 2 gm/ Sodium (Chloride) 100 mls @ 200 mls/hr IV ONETIME ONE Stop: 03/09/20 14:29 Last Admin: 03/09/20 15:00 Dose: 200 mls/hr Ampicillin Sodium 1 gm/ Sodium (Chloride) 50 mls @ 100 mls/hr IV Q4H MARY Last Admin: 03/09/20 19:05 Dose: 100 mls/hr Tranexamic Acid 1,000 mg/ (Sodium Chloride) 110 mls @ 660 mls/hr IV ONETIME PRN PRN Reason: Bleeding Lactated Ringer's (Ringers, Lactated) 1,000 mls @ 150 mls/hr IV ASDIRECTED MARY Last Admin: 03/09/20 19:36 Dose: 150 mls/hr Oxytocin/Sodium Chloride (Oxytocin 30 Unit/500 Ml-Ns) 30 unit in 500 mls @ 999 mls/hr IV TITRATE MARY Fentanyl/Bupivacaine HCl (Icexfcga-Pjata-Vh 2 Mcg/Ml-0.125%) Confirm Administered Dose 100 mls @ as directed .ROUTE .K-MED ONE Stop: 03/09/20 14:31 Oxytocin/Sodium Chloride (Oxytocin 30 Unit/500 Ml-Ns) 30 unit in 500 mls @ 2 mls/hr IV TITRATE MARY; Protocol Last Infusion: 03/09/20 21:52 Dose: 8 munits/min, 8 mls/hr Lidocaine HCl (Xylocaine 1%) 50 ml INJECT ONETIME PRN PRN Reason: Laceration repair Last Admin: 03/09/20 23:33 Dose: 50 ml Methylergonovine Maleate (Methergine) 0.2 mg IM ASDIRECTED PRN PRN Reason: Post Hemorrhage Misoprostol (Cytotec) 200 mcg PO ONETIME PRN PRN Reason: Post Hemorrhage Nalbuphine HCl (Nubain) 10 mg IVPUSH Q1H PRN PRN Reason: Pain (severe 7-10) Sodium Chloride (Saline Flush) 10 ml FLUSH ASDIRECTED PRN PRN Reason: Keep Vein Open Sodium Chloride (Saline Flush) 2.5 ml FLUSH ASDIRECTED PRN PRN Reason: Keep Vein Open Sodium Chloride (Normal Saline) 10 ml IV ASDIRECTED PRN PRN Reason: IV Use Sterile Water (Sterile Water For Irrigation) 1,000 ml IRR ASDIRECTED PRN PRN Reason: delivery Last Admin: 03/09/20 23:34 Dose: 1,000 ml - Interaction Infant Disposition, : [place] to Nursery Support Person: Significant Other - Recovery Exam Fundal Tone: Firm Fundal Level: 1 Fingerbreadths Below Umbilicus Fundal Placement: Midline Lochia Amount: Small, Moderate Lochia Color: Rubra/Red Perineum Description: Intact, Minimal Bruising/Swelling Episiotomy/Laceration: Approximated Bladder Status: Nonpalpable, Voiding Urinary Elimination: Voided - Exam HEENT: Pupils Equal Lungs: Clear to Auscultation, Normal Respiratory Effort Cardiovascular: Regular Rate, Regular Rhythm GI/Abdominal Exam: Soft, Non-Tender, No Distention Extremities: Non-Tender, No Pedal Edema Skin: Warm, Dry, Intact Neurological: No New Focal Deficit Psy/Mental Status: Alert, Normal Affect, Normal Mood - Problem List & Annotations (1) Vaginal delivery SNOMED Code(s): 725740422 Code(s): O80 - ENCOUNTER FOR FULL-TERM UNCOMPLICATED DELIVERY Status: Acute Current Visit: Yes - Problem List Review Problem List Initiated/Reviewed/Updated: Yes - My Orders Last 24 Hours: My Active Orders 03/09/20 10:23 Non Stress Test [RC] PER UNIT ROUTINE Up ad Kristine [RC] ASDIRECTED Vaginal Exam [RC] Click to Edit Vital Signs [RC] PER UNIT ROUTINE 03/09/20 13:20 RPR (SYPHILIS SERO) W/ RFLX [REF] Routine 03/09/20 13:25 CULTURE GROUP B STREP [RM] Routine 03/09/20 13:37 Heart Tones [RC] CONTINUOUS May Shower [RC] ASDIRECTED Notify Provider [RC] PRN 03/09/20 23:15 Patient Status [ADT] Routine May Shower [RC] ASDIRECTED Up ad Kristine [RC] ASDIRECTED Vital Signs [RC] PER UNIT ROUTINE Acetaminophen [Tylenol Extra Strength] 1,000 mg PO Q4H PRN Acetaminophen [Tylenol Extra Strength] 500 mg PO Q4H PRN Benzocaine/Menthol [Dermoplast Pain Relief 20%-0.5% Cache] 78 gm TOP ASDIRECTED PRN Docusate Sodium [Colace] 100 mg PO BID PRN Ibuprofen [Motrin] 400 mg PO Q4H PRN Ibuprofen [Motrin] 800 mg PO Q6H PRN Lanolin [Lansinoh HPA] See Dose Instructions TOP ASDIRECTED PRN Methylergonovine [Methergine] 0.2 mg IM ONETIME PRN Tranexamic Acid [Cyklokapron] 1,000 mg Sodium Chloride 0.9% [Normal Saline] 100 ml IV ONETIME bisacodyL [Dulcolax] 10 mg RECTAL ONETIME PRN oxyCODONE 5 mg PO Q2H PRN witch Anna [Tucks] 1 pad TOP ASDIRECTED PRN Assess Lochia [WOMSER] Per Unit Routine Assess Uterine Involution [WOMSER] Per Unit Routine Perineal Care [OM.PC] Per Unit Routine Peripheral IV Discontinue [OM.PC] Routine Resuscitation Status Routine 03/09/20 23:17 Communication Order [RC] PER UNIT ROUTINE 03/10/20 Breakfast Regular Diet [DIET] - Assessment Assessment:: PPD#1 after , stable, minimal lochia, states that she would like to go home at 24 hours if possible Reviewed need for follow up in clinic as she has had no care. - Plan Plan:: Dismiss to home, discharge precautions reviewed,
[2020-03-10] MEDS: Ampicillin 1 GM in Sodium Chloride 0.9% 50 ML IV SCH (10:49)
== END 2020-03-11 00:50 | disposition home or self-care (01) | DRG 807 ==
LOC: MW.OB 09:29 → MW.OBCHECK 09:29 → UNDOADMOB 09:35 → MW.OBCHECK 09:35 → MW.OB 09:35 → OBSVTOIN 23:15 → MW.OB 03-10 03:00
PROVIDERS: ADMIT Obstetrics & Gynecology; ATTEND Obstetrics & Gynecology
PROC: 10E0XZZ Delivery of Products of Conception, External Approach (ICD-10-PCS; principal; 2020-03-09)
PROC: 10907ZC Drainage of Amniotic Fluid, Therapeutic from Products of Conception, Via Natural or Artificial Opening (ICD-10-PCS; 2020-03-09)
PROC: 3E0R3BZ Introduction of Anesthetic Agent into Spinal Canal, Percutaneous Approach (ICD-10-PCS; 2020-03-09)
DX: O99.334 Smoking (tobacco) complicating childbirth (principal); Z37.0 Single live birth; F17.210 Nicotine dependence, cigarettes, uncomplicated; Z3A.38 38 weeks gestation of pregnancy
CPT/HCPCS: 01967; 36415; 51702; 59025; 59409; 80305-QW; 81003; 82803; 85014; 85018; 85025; 86592; 86593; 86706; 86762; 86850; 86900; 86901; 87081; 87340; 87389; 87491; 87591; A9270-GY; J0290; J2001; J2590; J7050; J7120

== ENCOUNTER 2020-05-06 12:07 | Emergency (ER) | payer MEDICAID ==
--- NOTE | 2020-05-06 12:15 | EDM.PDOC ---
ED HPI GENERAL MEDICAL PROBLEM - General Chief Complaint: Back Pain or Injury Stated Complaint: BACK PAIN FEVER Time Seen by Provider: 05/06/20 12:11 Source of Information: Reports: Patient History Limitations: Reports: No Limitations - History of Present Illness INITIAL COMMENTS - FREE TEXT/NARRATIVE: HISTORY AND PHYSICAL: History of present illness: Patient is a 24-year-old female who presents the ED today with concern of left- sided flank pain, fevers, and nausea for the past 2 days. Patient states her T- max at home was 102 that she checked orally yesterday. Patient states that the pain has progressed over the last 2 days and she rates it an 8 out of 10. Patient states she took Tylenol at about 5 this morning but has not taken any other medications for pain. Patient denies any health history. Patient denies chest pain, shortness of breath, or cough. Denies headache, neck stiff ness, change in vision, syncope, or near syncope. Denies vomiting, abdominal pain, diarrhea, constipation, or dysuria. Has not noted any blood in urine or stool. Patient has been eating and drinking appropriately. Review of systems: As per history of present illness and below otherwise all systems reviewed and negative. Past medical history: As per history of present illness and as reviewed below otherwise noncontributory. Surgical history: As per history of present illness and as reviewed below otherwise noncontributory. Social history: See social history for further information Family history: As per history of present illness and as reviewed below otherwise noncon tributory. Physical exam: General: Patient is alert, oriented, and in no acute distress. Patient sitting on exam table, in mild-moderate distress, tired appearing. HEENT: Atraumatic, normocephalic, pupils equal and reactive bilaterally, negative for conjunctival pallor or scleral icterus, mucous membranes moist, TMs normal bilaterally, throat clear, neck supple, nontender, trachea midline. No drooling or trismus noted. No meningeal signs. No hot potato voice noted. Lungs: Clear to auscultation, breath sounds equal bilaterally, chest nontender. Heart: S1S2, regular rate and rhythm without overt murmur Abdomen: Soft, nondistended, nontender. Negative for masses or hepatosplenomegaly. Positive for costovertebral tenderness of the left. Pelvis: Stable nontender. Genitourinary: Deferred. Rectal: Deferred. Skin: Intact, warm, dry. No lesions or rashes noted. Extremities: Atraumatic, negative for cords or calf pain. Neurovascular unremarkable. Neuro: Awake, alert, oriented. Cranial nerves II through XII unremarkable. Cerebellum unremarkable. Motor and sensory unremarkable throughout. Exam nonfocal. Notes: Admission for observation for additional IV antibiotics was offered to patient but she declines at this time stating she is unable to find childcare. All risks versus benefits, including , discussed with patient and expresses understanding. Signs and symptoms that would prompt patient to return to the ED were reviewed and discussed thoroughly with patient. Patient agreeable to signing AMA form and this has been signed. Voices understanding and is agreeable to plan of care. Denies any further questions or concerns at this time. Diagnostics: CBC, CMP, UA w culture, urine hCG, lipase, Abd/Pelvic CT w/o cont Therapeutics: 1L NS, Toradol 30 IV, Zofran 4mg IV, Rocephin 1g IV Prescription: Levofloxacin, Diclofenac Impression: Acute Pyelonephritis Microcytic Anemia Against Medical Advice Plan: 1. Take medication as prescribed. You can take diclofenac as directed for pain and discomfort. You can also use Tylenol as directed for pain and discomfort. Do not take any additional NSAIDs, such as ibuprofen/Aspirin, with diclofenac use. 2. Follow-up with a primary care provider as discussed. Return to the ED as needed and as discussed. Definitive disposition and diagnosis as appropriate pending reevaluation and review of above. Lower Back Pain Score (Numeric/FACES): 8 - Related Data Allergies Allergy/AdvReac Type Severity Reaction Status Date / Time No Known Allergies Allergy Verified 05/06/20 12:22 Home Meds: Home Meds Diclofenac Sodium [Voltaren] 75 mg PO BIDMEALS PRN #15 tab.cr 05/06/20 [Rx] levoFLOXacin [Levofloxacin] 750 mg PO DAILY 5 Days #5 tablet 05/06/20 [Rx] Past Medical History - Past Health History Medical/Surgical History: Denies Medical/Surgical History Social & Family History - Family History Endocrine/Metabolic: Reports: Diabetes, type II Oncologic: Reports: Breast, Colon - Caffeine Use Caffeine Use: Reports: Soda ED ROS GENERAL - Review of Systems Review Of Systems: Comprehensive ROS is negative, except as noted in HPI. ED EXAM, GENERAL - Physical Exam Exam: See Below (see dictation) Course - Vital Signs Last Recorded V/S: Last Vital Signs Temp 98.6 F 05/06/20 12:23 Pulse 102 H 05/06/20 15:17 Resp 15 05/06/20 15:17 BP 103/58 L 05/06/20 15:17 Pulse Ox 99 05/06/20 15:17 - Orders/Labs/Meds Orders: Active Orders 24 hr Category Date Time Status CULTURE BLOOD [BC] Stat Lab 05/06/20 13:25 Received CULTURE BLOOD [BC] Stat Lab 05/06/20 13:35 Received CULTURE URINE [RM] Stat Lab 05/06/20 12:27 Received Blood Culture x2 Reflex Set [OM.PC] Stat Oth 05/06/20 13:18 Ordered Labs: Laboratory Tests 05/06/20 05/06/20 05/06/20 Range/Units 12:27 12:27 13:25 WBC 13.13 H (4.0-11.0) K/uL RBC 4.02 L (4.30-5.90) M/uL Hgb 10.1 L (12.0-16.0) g/dL Hct 31.3 L (36.0-46.0) % MCV 77.9 L (80.0-98.0) fL MCH 25.1 L (27.0-32.0) pg MCHC 32.3 (31.0-37.0) g/dL RDW Std Deviation 60.9 (28.0-62.0) fl RDW Coeff of Sander 21 H (11.0-15.0) % Plt Count 117 L (150-400) K/uL MPV 10.40 (7.40-12.00) fL Neut % (Auto) 89.6 H (48.0-80.0) % Lymph % (Auto) 5.8 L (16.0-40.0) % Waldo % (Auto) 4.4 (0.0-15.0) % Eos % (Auto) 0.1 (0.0-7.0) % Baso % (Auto) 0.1 (0.0-1.5) % Neut # (Auto) 11.8 H (1.4-5.7) K/uL Lymph # (Auto) 0.8 (0.6-2.4) K/uL Waldo # (Auto) 0.6 (0.0-0.8) K/uL Eos # (Auto) 0.0 (0.0-0.7) K/uL Baso # (Auto) 0.0 (0.0-0.1) K/uL Nucleated RBC % 0.0 /100WBC Nucleated RBCs # 0 K/uL Lactate (0.20-2.00) mmol/L Sodium (136-145) mmol/L Potassium (3.5-5.1) mmol/L Chloride (98-107) mmol/L Carbon Dioxide (21.0-32.0) mmol/L BUN (7.0-18.0) mg/dL Creatinine (0.6-1.0) mg/dL Est Cr Clr Drug Dosing mL/min Estimated GFR (MDRD) ml/min Glucose (74-106) mg/dL Calcium (8.5-10.1) mg/dL Total Bilirubin (0.2-1.0) mg/dL AST (15-37) IU/L ALT (14-63) IU/L Alkaline Phosphatase (46-116) U/L Total Protein (6.4-8.2) g/dL Albumin (3.4-5.0) g/dL Globulin (2.6-4.0) g/dL Albumin/Globulin Ratio (0.9-1.6) Lipase (73-393) U/L Urine Color YELLOW Urine Appearance SLT CLOUDY Urine pH 6.0 (5.0-8.0) Ur Specific [place] 1.020 (1.001-1.035) Urine Protein 100 H (NEGATIVE) mg/dL Urine Glucose (UA) NEGATIVE (NEGATIVE) mg/dL Urine Ketones NEGATIVE (NEGATIVE) mg/dL Urine Occult Blood MODERATE H (NEGATIVE) Urine Nitrite POSITIVE H (NEGATIVE) Urine Bilirubin NEGATIVE (NEGATIVE) Urine Urobilinogen 4.0 H (<2.0) EU/dL Ur Leukocyte Esterase SMALL H (NEGATIVE) Urine RBC 10-15 (0-2/HPF) Urine WBC 15-20 (0-5/HPF) Ur Epithelial Cells FEW (NONE-FEW) Urine Bacteria 1+ H (NEGATIVE) Urine Mucus LIGHT (NONE-MOD) Urine HCG, Qual NEGATIVE (NEGATIVE) 08/05/20 08/05/20 Range/Units 13:25 13:35 WBC (4.0-11.0) K/uL RBC (4.30-5.90) M/uL Hgb (12.0-16.0) g/dL Hct (36.0-46.0) % MCV (80.0-98.0) fL MCH (27.0-32.0) pg MCHC (31.0-37.0) g/dL RDW Std Deviation (28.0-62.0) fl RDW Coeff of Sander (11.0-15.0) % Plt Count (150-400) K/uL MPV (7.40-12.00) fL Neut % (Auto) (48.0-80.0) % Lymph % (Auto) (16.0-40.0) % Waldo % (Auto) (0.0-15.0) % Eos % (Auto) (0.0-7.0) % Baso % (Auto) (0.0-1.5) % Neut # (Auto) (1.4-5.7) K/uL Lymph # (Auto) (0.6-2.4) K/uL Waldo # (Auto) (0.0-0.8) K/uL Eos # (Auto) (0.0-0.7) K/uL Baso # (Auto) (0.0-0.1) K/uL Nucleated RBC % /100WBC Nucleated RBCs # K/uL Lactate 1.5 (0.20-2.00) mmol/L Sodium 132 L (136-145) mmol/L Potassium 3.4 L (3.5-5.1) mmol/L Chloride 100 (98-107) mmol/L Carbon Dioxide 22.6 (21.0-32.0) mmol/L BUN 17 (7.0-18.0) mg/dL Creatinine 1.3 H (0.6-1.0) mg/dL Est Cr Clr Drug Dosing 48.76 mL/min Estimated GFR (MDRD) 51.2 ml/min Glucose 117 H (74-106) mg/dL Calcium 7.1 L (8.5-10.1) mg/dL Total Bilirubin 0.2 (0.2-1.0) mg/dL AST 33 (15-37) IU/L ALT 26 (14-63) IU/L Alkaline Phosphatase 122 H (46-116) U/L Total Protein 6.0 L (6.4-8.2) g/dL Albumin 2.3 L (3.4-5.0) g/dL Globulin 3.7 (2.6-4.0) g/dL Albumin/Globulin Ratio 0.6 L (0.9-1.6) Lipase 28 L (73-393) U/L Urine Color Urine Appearance Urine pH (5.0-8.0) Ur Specific [place] (1.001-1.035) Urine Protein (NEGATIVE) mg/dL Urine Glucose (UA) (NEGATIVE) mg/dL Urine Ketones (NEGATIVE) mg/dL Urine Occult Blood (NEGATIVE) Urine Nitrite (NEGATIVE) Urine Bilirubin (NEGATIVE) Urine Urobilinogen (<2.0) EU/dL Ur Leukocyte Esterase (NEGATIVE) Urine RBC (0-2/HPF) Urine WBC (0-5/HPF) Ur Epithelial Cells (NONE-FEW) Urine Bacteria (NEGATIVE) Urine Mucus (NONE-MOD) Urine HCG, Qual (NEGATIVE) Meds: Medications Discontinued Medications Generic Name Dose Route Start Last Admin Trade Name Freq PRN Reason Stop Dose Admin Sodium Chloride 1,000 mls @ 999 mls/hr 05/06/20 12:46 05/06/20 13:07 Normal Saline IV 05/06/20 13:46 999 mls/hr BOLUS ONE Administration Ceftriaxone Sodium/Dextrose 1 50 mls @ 100 mls/hr 05/06/20 13:01 05/06/20 13:08 gm/ Premix IV 05/06/20 13:30 100 mls/hr ONETIME ONE Administration Ketorolac Tromethamine 30 mg 05/06/20 12:46 05/06/20 13:08 Toradol IVPUSH 05/06/20 12:47 30 mg ONETIME ONE Administration Ondansetron HCl 4 mg 05/06/20 12:46 05/06/20 13:07 Zofran IVPUSH 05/06/20 12:47 4 mg ONETIME ONE Administration Departure - Departure Time of Disposition: 14:49 Disposition: Against Medical Advice 07 Clinical Impression: Acute pyelonephritis, Microcytic anemia, Left against medical advice - Discharge Information Prescriptions: levoFLOXacin [Levofloxacin] 750 mg PO DAILY 5 Days #5 tablet Diclofenac Sodium [Voltaren] 75 mg PO BIDMEALS PRN #15 tab.cr PRN Reason: Pain Instructions: Pyelonephritis, Adult, [id number], Anemia Referrals: PCP,None [Primary Care Provider] - Forms: ED Department Discharge Additional Instructions: The following information is given to patients seen in the emergency department who are being discharged to home. This information is to outline your options for follow-up care. We provide all patients seen in our emergency department with a follow-up referral. The need for follow-up, as well as the timing and circumstances, are variable depending upon the specifics of your emergency department visit. If you don't have a primary care physician on staff, we will provide you with a referral. We always advise you to contact your personal physician following an emergency department visit to inform them of the circumstance of the visit and for follow-up with them and/or the need for any referrals to a consulting specialist. The emergency department will also refer you to a specialist when appropriate. This referral assures that you have the opportunity for follow-up care with a specialist. All of these measure are taken in an effort to provide you with optimal care, which includes your follow-up. Under all circumstances we always encourage you to contact your private physician who remains a resource for coordinating your care. When calling for follow-up care, please make the office aware that this follow-up is from your recent emergency room visit. If for any reason you are refused follow-up, please contact the [facility] Emergency Department at and asked to speak to the emergency department charge nurse. [facility] [address] [place] [id number] [id number] 1. Take medication as prescribed. You can take diclofenac as directed for pain and discomfort. You can also use Tylenol as directed for pain and discomfort. Do not take any additional NSAIDs, such as ibuprofen/Aspirin, with diclofenac use. 2. Follow-up with a primary care provider as discussed. Return to the ED as needed and as discussed. Sepsis Event Note (ED) - Focused Exam Vital Signs: Vital Signs Temp Pulse Resp BP Pulse Ox 05/06/20 15:17 102 H 15 103/58 L 99 05/06/20 14:20 110 H 14 100/56 L 99 05/06/20 12:23 98.6 F 126 H 18 101/61 100 - My Orders Last 24 Hours: My Active Orders 05/06/20 12:27 CULTURE URINE [RM] Stat 05/06/20 13:18 Blood Culture x2 Reflex Set [OM.PC] Stat 05/06/20 13:25 CULTURE BLOOD [BC] Stat 05/06/20 13:35 CULTURE BLOOD [BC] Stat - Assessment/Plan Last 24 Hours: My Active Orders 05/06/20 12:27 CULTURE URINE [RM] Stat 05/06/20 13:18 Blood Culture x2 Reflex Set [OM.PC] Stat 05/06/20 13:25 CULTURE BLOOD [BC] Stat 05/06/20 13:35 CULTURE BLOOD [BC] Stat
[2020-05-06] MEDS ORDERED: Sodium Chloride 0.9% 1,000 ML IV ONE (12:46)
[2020-05-06] MEDS ORDERED: Ketorolac 30 MG/ML SDV IVPUSH ONE (12:46)
[2020-05-06] MEDS ORDERED: Ondansetron 4 MG/2 ML SDV IVPUSH ONE (12:46)
[2020-05-06] MEDS ORDERED: cefTRIAXone 1 GM in Premix Bag 1 BAG IV ONE (13:01)
--- NOTE | 2020-05-06 14:03 | CT ---
CT abdomen and pelvis Technique: Multiple axial sections were obtained from above the dome of the diaphragm inferiorly through the pubic symphysis. Intravenous and oral contrast not utilized. Study has been performed as a ureteral stone protocol. Findings: Kidneys show no abnormal calcifications. No ureteral dilatation or ureteral stone is seen. Left kidney appears swollen as compared to the right kidney. There is also slight inflammatory change off the inferior left kidney. Findings raise the possibility of pyelonephritis. Other findings: Visualized lung bases show nothing acute. Liver shows no focal parenchymal abnormality. Spleen appears within normal limits. Adrenal glands show no nodule. Pancreas shows no discrete abnormality. Gallbladder contains no calcified gallstones. Aorta shows no aneurysm. No retroperitoneal adenopathy or mesenteric abnormalities are seen. No pelvic mass or adenopathy is seen. No free fluid or other inflammatory change is appreciated. Bone window settings were reviewed which shows no acute osseous finding. Impression: 1. No renal calculi, ureteral dilatation or ureteral stone is seen. 2. Left kidney is slightly enlarged as compared to the right kidney with mild inflammatory change off the inferior left kidney. These findings raise the possibility of pyelonephritis. Please correlate if this matches clinically. 3. No additional abnormality is appreciated on noncontrast CT study of the abdomen and pelvis. Diagnostic code #3 This report was dictated in MDT
[2020-05-06 14:10] LABS: CARBON DIOXIDE,CO2 22.6 mmol/L (21.0-32.0); POTASSIUM,K 3.4 mmol/L (3.5-5.1)
== END 2020-05-06 15:27 | disposition left against medical advice (07) ==
LOC: MW.ED 12:07
DX: N10 Acute pyelonephritis (principal); D50.9 Iron deficiency anemia, unspecified
CPT/HCPCS: 36415; 74176; 80053; 81001; 81025; 83605; 83690; 85025; 87040; 87086; 87088; 87186; 96361; 96365; 96375; 99284; J0696; J1885; J2405; J7030; 99283

== ENCOUNTER 2021-06-06 04:21 | Inpatient (IN) | payer MEDICAID ==
[2021-06-06] MEDS ORDERED: Lidocaine 1% 50 ML MDV INJECT PRN (04:58)
[2021-06-06] MEDS ORDERED: Sodium Chloride 0.9% 10 ML Syringe FLUSH PRN (04:58)
[2021-06-06] MEDS ORDERED: Nalbuphine 10 MG/1 ML Vial IVPUSH PRN (04:58)
[2021-06-06] MEDS ORDERED: Carboprost Tromethamine 250 MCG/1 ML Amp IM PRN (04:58)
[2021-06-06] MEDS ORDERED: Tranexamic Acid 1,000 MG in Sodium Chloride 0.9% 100 ML IV PRN (04:58)
[2021-06-06] MEDS ORDERED: Butorphanol 1 MG/ML SDV IVPUSH PRN (04:58)
[2021-06-06] MEDS ORDERED: Sodium Chloride 0.9% 10 ML SDV IV PRN (04:58)
[2021-06-06] MEDS ORDERED: Water For Irrigation,Sterile 1,000 ML Container IRR PRN (04:58)
[2021-06-06] MEDS ORDERED: Misoprostol 200 MCG Tab PO PRN (04:58)
[2021-06-06] MEDS ORDERED: Methylergonovine 0.2 MG/1 ML Amp IM PRN (04:58)
[2021-06-06] MEDS ORDERED: Ondansetron 4 MG/2 ML SDV IVPUSH PRN (04:58)
[2021-06-06] MEDS ORDERED: Sodium Chloride 0.9% 2.5 ML Syringe FLUSH PRN (04:58)
[2021-06-06] MEDS ORDERED: Oxytocin/0.9 % Sodium Chloride 30 UNIT/500 ML BAG IV SCH (05:00)
[2021-06-06] MEDS ORDERED: Ampicillin 2 GM in Sodium Chloride 0.9% 100 ML IV ONE (05:00)
[2021-06-06] MEDS: Lactated Ringers 1,000 ML IV SCH ×2 (05:10→06:08)
[2021-06-06] MEDS ORDERED: Ampicillin 1 GM Vial ONE (05:11)
--- NOTE | 2021-06-06 05:28 | PCM.LDHP ---
L&D History of Present Illness - General Date of Service: 06/06/21 Admit Problem/Dx: Patient Status Order with Admit Dx/Problem 06/06/21 04:10 Patient Status [ADT] Routine Admission Diagnosis/Problem Admission Diagnosis/Problem 06/06/21 05:21 Unassigned patient presenting to L&D in active labor, accompanied by her father, stating she is "full term" with her 4th child. She reports she is a . States that the contractions began "last night". When asked whether she knew her LMP, she said "no, but I'm full term". She reports having had one care visit in [place], but states that she was never told a due date. She has had no care since. Her last child was born 03/09/20. GBS unknown. No loss of fluid. Good movement reported. Vertex by Pavel's and confirmed by bedside TAUS. Upon presentation, SVE per this provided noted 8cm/90%/-3, midposition. Source of Information: Patient History Limitations: Reports: No Limitations - Related Data Allergies/Adverse Reactions: Allergies Allergy/AdvReac Type Severity Reaction Status Date / Time No Known Allergies Allergy Verified 06/06/21 04:26 Home Medications: Home Meds Diclofenac Sodium [Voltaren] 75 mg PO BIDMEALS PRN #15 tab.cr 05/06/20 [Rx] levoFLOXacin [Levofloxacin] 750 mg PO DAILY 5 Days #5 tablet 05/06/20 [Rx] Past Medical History - Past Health History Medical/Surgical History: Denies Medical/Surgical History HEENT History: Reports: None Cardiovascular History: Reports: None Respiratory History: Reports: None Gastrointestinal History: Reports: None Genitourinary History: Reports: None FIELD LIABILITY GENERALIST History: Reports: Musculoskeletal History: Reports: None Neurological History: Reports: None Psychiatric History: Reports: None Endocrine/Metabolic History: Reports: None Hematologic History: Reports: None Immunologic History: Reports: None Oncologic (Cancer) History: Reports: None Dermatologic History: Reports: None - Infectious Disease History Infectious Disease History: Reports: MRSA Other Infectious Disease History: left leg 5 years ago - Past Surgical History Head Surgeries/Procedures: Reports: None Female Surgical History: Reports: None Social & Family History - Family History Family Medical History: No Pertinent Family History Endocrine/Metabolic: Reports: Diabetes, type II Oncologic: Reports: Breast, Colon - Caffeine Use Caffeine Use: Reports: Soda H&P Review of Systems - Review of Systems: Review Of Systems: See Below General: Reports: No Symptoms HEENT: Reports: No Symptoms Pulmonary: Reports: No Symptoms Cardiovascular: Reports: No Symptoms Gastrointestinal: Reports: No Symptoms Genitourinary: Reports: No Symptoms Musculoskeletal: Reports: No Symptoms Skin: Reports: No Symptoms Psychiatric: Reports: No Symptoms Neurological: Reports: No Symptoms Hematologic/Lymphatic: Reports: No Symptoms Immunologic: Reports: No Symptoms L&D Exam - Exam Exam: See Below - Vital Signs Weight: 165 lb - OB Specific Contraction Intensity: Moderate Movement: Active Heart Tones: Present Heart Rate (FHR) Variability: Moderate (6-25 bpm) Presentation: Vertex (confirmed with TAUS) - Saez Score Saez Score Cervix Position: Midposition Saez Score Consistency: Soft Saez Score Effacement: >80% Saez Score Dilation: > 5 cm Saez Score 's Station: -3 Saez Score Total: 9 - Exam General: Alert, Oriented, Cooperative Lungs: Normal Respiratory Effort Cardiovascular: Regular Rate, Regular Rhythm GI/Abdominal Exam: Soft, Non-Tender Rectal Exam: Deferred Genitourinary: Deferred Back Exam: Normal Inspection, Full Range of Motion Extremities: Normal Inspection, Normal Range of Motion, Normal Capillary Refill Skin: Warm, Dry, Intact Neurological: Normal Speech, Normal Tone, Sensation Intact Psychiatric: Alert, Normal Affect, Normal Mood - Problem List (1) Supervision of normal IUP (intrauterine ) in multigravida SNOMED Code(s): 438965150, 124110838, 300323341 ICD Code: Z34.80 - ENCOUNTER FOR SUPRVSN OF NORMAL , UNSP TRIMESTER Status: Acute Priority: High Current Visit: Yes Qualifiers: Trimester: third trimester Qualified Code(s): Z34.83 - Encounter for supervision of other normal , third trimester (2) Insufficient care SNOMED Code(s): 6642815391864 ICD Code: O09.30 - SUPRVSN OF PREG W INSUFFICIENT ANTENAT CARE, UNSP TRIMESTER Status: Acute Priority: High Current Visit: Yes Qualifiers: Trimester: third trimester Qualified Code(s): O09.33 - Supervision of with insufficient care, third trimester (3) History of marijuana use SNOMED Code(s): 773350037 ICD Code: Z87.898 - PERSONAL HISTORY OF OTHER SPECIFIED CONDITIONS Status: Acute Priority: High Current Visit: Yes Problem List Initiated/Reviewed/Updated: Yes Orders Last 24hrs: Active Orders 24 hr Category Date Time Status Patient Status [ADT] Routine ADT 06/06/21 04:10 Active Heart Tones [RC] CONTINUOUS Care 06/06/21 04:58 Active Non Stress Test [RC] PER UNIT ROUTINE Care 06/06/21 04:34 Active Notify Provider [RC] PRN Care 06/06/21 04:58 Active Up ad Kristine [RC] ASDIRECTED Care 06/06/21 04:34 Active Up ad Kristine [RC] ASDIRECTED Care 06/06/21 04:58 Active Vaginal Exam [RC] Click to Edit Care 06/06/21 04:34 Active Vaginal Exam [RC] PRN Care 06/06/21 04:58 Active Vital Signs [RC] PER UNIT ROUTINE Care 06/06/21 04:34 Active CBC W/O DIFF,HEMOGRAM [HEME] Routine Lab 06/06/21 05:05 Received CHLAMYDIA AND GONORRHEA BY TMA Routine Lab 06/06/21 04:36 Ordered DRUG SCREEN, URINE [URCHEM] Routine Lab 06/06/21 04:36 Ordered GROUP B STREP BY PCR [MOLEC] Routine Lab 06/06/21 04:36 Ordered HEPATITIS B SURFACE AG [CHEM] Routine Lab 06/06/21 05:05 Received HEPATITIS C ANTIBODY WITH REFL [CHEM] Routine Lab 06/06/21 05:05 Received HIV12 AG/AB 4TH GEN [CHEM] Routine Lab 06/06/21 05:05 Received RPR (SYPHILIS SERO) W/ RFLX [REF] Routine Lab 06/06/21 05:05 Received RUBELLA ANTIBODY IGG [CHEM] Routine Lab 06/06/21 05:05 Received TYPE AND SCREEN [BBK] Routine Lab 06/06/21 05:05 Received UA RFX DANIELA AND CULT IF INDIC [URIN] Routine Lab 06/06/21 04:36 Ordered Ampicillin 2 gm Med 06/06/21 05:00 Active Sodium Chloride 0.9% [Normal Saline] 100 ml IV ONETIME Butorphanol [Stadol] Med 06/06/21 04:58 Active 1 mg IVPUSH Q1H PRN Carboprost Tromethamine [Hemabate DS] Med 06/06/21 04:58 Active 250 mcg IM ASDIRECTED PRN Lactated Ringers [Ringers, Lactated] 1,000 ml Med 06/06/21 05:00 Active IV ASDIRECTED Lidocaine 1% [Xylocaine 1%] Med 06/06/21 04:58 Active 50 ml INJECT ONETIME PRN Methylergonovine [Methergine] Med 06/06/21 04:58 Active 0.2 mg IM ASDIRECTED PRN Nalbuphine [Nubain] Med 06/06/21 04:58 Active 10 mg IVPUSH Q1H PRN Ondansetron [Zofran] Med 06/06/21 04:58 Active 4 mg IVPUSH Q4H PRN Oxytocin/0.9 % Sodium Chloride [Oxytocin 30 Unit/500 ML Med 06/06/21 05:00 Active -NS] 30 unit in 500 ml IV TITRATE Sodium Chloride 0.9% [Normal Saline] Med 06/06/21 04:58 Active 10 ml IV ASDIRECTED PRN Sodium Chloride 0.9% [Saline Flush] Med 06/06/21 04:58 Active 10 ml FLUSH ASDIRECTED PRN Sodium Chloride 0.9% [Saline Flush] Med 06/06/21 04:58 Active 2.5 ml FLUSH ASDIRECTED PRN Tranexamic Acid [Cyklokapron] 1,000 mg Med 06/06/21 04:58 Active Sodium Chloride 0.9% [Normal Saline] 100 ml IV ONETIME Water For Irrigation,Sterile [Sterile Water for Med 06/06/21 04:58 Active Irrigation] 1,000 ml IRR ASDIRECTED PRN miSOPROStoL [Cytotec] Med 06/06/21 04:58 Active 200 mcg PO ONETIME PRN Scalp Electrode [WOMSER] Per Unit Routine Oth 06/06/21 04:58 Ordered Peripheral IV Insertion Adult [OM.PC] Routine Oth 06/06/21 04:58 Ordered Resuscitation Status Routine Resus Stat 06/06/21 04:34 Ordered Medication Orders Butorphanol Tartrate (Butorphanol 1 Mg/Ml Sdv) 1 mg IVPUSH Q1H PRN PRN Reason: Pain (severe 7-10) Carboprost Tromethamine (Carboprost Tromethamine 250 Mcg/1 Ml Amp) 250 mcg IM ASDIRECTED PRN PRN Reason: Post Hemorrhage Lactated Ringer's (Ringers, Lactated) 1,000 mls @ 150 mls/hr IV ASDIRECTED MARY Oxytocin/Sodium Chloride (Oxytocin 30 Unit/500 Ml-Ns) 30 unit in 500 mls @ 500 mls/hr IV TITRATE MARY Tranexamic Acid 1,000 mg/ (Sodium Chloride) 110 mls @ 660 mls/hr IV ONETIME PRN PRN Reason: Bleeding Ampicillin Sodium 2 gm/ Sodium (Chloride) 100 mls @ 200 mls/hr IV ONETIME ONE Stop: 06/06/21 05:29 Lidocaine HCl (Lidocaine 1% 50 Ml Mdv) 50 ml INJECT ONETIME PRN PRN Reason: Laceration repair Methylergonovine Maleate (Methylergonovine 0.2 Mg/1 Ml Amp) 0.2 mg IM ASDIRECTED PRN PRN Reason: Post Hemorrhage Misoprostol (Misoprostol 200 Mcg Tab) 200 mcg PO ONETIME PRN PRN Reason: Post Hemorrhage Nalbuphine HCl (Nalbuphine 10 Mg/1 Ml Vial) 10 mg IVPUSH Q1H PRN PRN Reason: Pain (severe 7-10) Ondansetron HCl (Ondansetron 4 Mg/2 Ml Sdv) 4 mg IVPUSH Q4H PRN PRN Reason: Nausea/Vomiting Sodium Chloride (Sodium Chloride 0.9% 10 Ml Syringe) 10 ml FLUSH ASDIRECTED PRN PRN Reason: Keep Vein Open Sodium Chloride (Sodium Chloride 0.9% 2.5 Ml Syringe) 2.5 ml FLUSH ASDIRECTED PRN PRN Reason: Keep Vein Open Sodium Chloride (Sodium Chloride 0.9% 10 Ml Sdv) 10 ml IV ASDIRECTED PRN PRN Reason: IV Use Sterile Water (Water For Irrigation,Sterile 1,000 Ml Container) 1,000 ml IRR ASDIRECTED PRN PRN Reason: delivery Assessment/Plan Comment:: Admit A: Unassigned patient presenting to L&D in active labor, accompanied by her father, stating she is "full term" with her 4th child. She reports she is a . States that the contractions began "last night". When asked whether she knew her LMP, she said "no, but I'm full term". She reports having had one care visit in [place], but states that she was never told a due date. She has had no care since. Her last child was born 03/09/20. GBS unknown. No loss of fluid. Good movement reported. Vertex by Pavel's and confirmed by bedside TAUS. Upon presentation, SVE per this provided noted 8cm/90%/-3, midposition. P: Anticipate ; epidural PRN; Dr. Coyne updated.
[2021-06-06] MEDS ORDERED: Ropivacaine HCl/PF 200 ML ONE (05:35)
--- NOTE | 2021-06-06 05:56 | PCM.PREANE ---
Preanesthetic Assessment - Anesthesia/Transfusion/Family Hx Anesthesia History: No Prior Anesthesia Family History of Anesthesia Reaction: No Transfusion History: No Prior Transfusion(s) - Review of Systems General: No Symptoms Pulmonary: No Symptoms Cardiovascular: No Symptoms Gastrointestinal: No Symptoms Neurological: No Symptoms Other: Reports: None - Physical Assessment Height: 4 ft 11 in Weight: 165 lb ASA Class: 2 Mental Status: Alert & Oriented x3 Airway Class: Mallampati = 3 Dentition: Reports: Normal Dentition ROM/Head Extension: Full Lungs: Clear to Auscultation, Normal Respiratory Effort Cardiovascular: Regular Rate, Regular Rhythm - Allergies Allergies/Adverse Reactions: Allergies Allergy/AdvReac Type Severity Reaction Status Date / Time No Known Allergies Allergy Verified 06/06/21 04:26 - Blood Blood Available: Yes Product(s) Available: PRBC, FFP, Platelets - Anesthesia Plan Pre-Op Medication Ordered: None - Acknowledgements Anesthesia Type Planned: Epidural Pt an Appropriate Candidate for the Planned Anesthesia: Yes Alternatives and Risks of Anesthesia Discussed w Pt/Guardian: Yes Pt/Guardian Understands and Agrees with Anesthesia Plan: Yes PreAnesthesia Questionnaire - Past Health History Medical/Surgical History: Denies Medical/Surgical History HEENT History: Reports: None Cardiovascular History: Reports: None Respiratory History: Reports: None Gastrointestinal History: Reports: None Genitourinary History: Reports: None 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: Musculoskeletal History: Reports: None Neurological History: Reports: None Psychiatric History: Reports: None Endocrine/Metabolic History: Reports: None Hematologic History: Reports: None Immunologic History: Reports: None Oncologic (Cancer) History: Reports: None Dermatologic History: Reports: None - Infectious Disease History Infectious Disease History: Reports: MRSA Other Infectious Disease History: left leg 5 years ago - Past Surgical History Head Surgeries/Procedures: Reports: None Female Surgical History: Reports: None - HOME MEDS Home Medications: Home Meds Diclofenac Sodium [Voltaren] 75 mg PO BIDMEALS PRN #15 tab.cr 05/06/20 [Rx] levoFLOXacin [Levofloxacin] 750 mg PO DAILY 5 Days #5 tablet 05/06/20 [Rx] - CURRENT (IN HOUSE) MEDS Current Meds: Current Medications Butorphanol Tartrate (Butorphanol 1 Mg/Ml Sdv) 1 mg IVPUSH Q1H PRN PRN Reason: Pain (severe 7-10) Carboprost Tromethamine (Carboprost Tromethamine 250 Mcg/1 Ml Amp) 250 mcg IM ASDIRECTED PRN PRN Reason: Post Hemorrhage Lactated Ringer's (Ringers, Lactated) 1,000 mls @ 150 mls/hr IV ASDIRECTED MARY Last Admin: 06/06/21 05:10 Dose: 150 mls/hr Documented by: Oxytocin/Sodium Chloride (Oxytocin 30 Unit/500 Ml-Ns) 30 unit in 500 mls @ 500 mls/hr IV TITRATE [facility] Tranexamic Acid 1,000 mg/ (Sodium Chloride) 110 mls @ 660 mls/hr IV ONETIME PRN PRN Reason: Bleeding Lidocaine HCl (Lidocaine 1% 50 Ml Mdv) 50 ml INJECT ONETIME PRN PRN Reason: Laceration repair Methylergonovine Maleate (Methylergonovine 0.2 Mg/1 Ml Amp) 0.2 mg IM ASDIRECTED PRN PRN Reason: Post Hemorrhage Misoprostol (Misoprostol 200 Mcg Tab) 200 mcg PO ONETIME PRN PRN Reason: Post Hemorrhage Nalbuphine HCl (Nalbuphine 10 Mg/1 Ml Vial) 10 mg IVPUSH Q1H PRN PRN Reason: Pain (severe 7-10) Ondansetron HCl (Ondansetron 4 Mg/2 Ml Sdv) 4 mg IVPUSH Q4H PRN PRN Reason: Nausea/Vomiting Sodium Chloride (Sodium Chloride 0.9% 10 Ml Syringe) 10 ml FLUSH ASDIRECTED PRN PRN Reason: Keep Vein Open Sodium Chloride (Sodium Chloride 0.9% 2.5 Ml Syringe) 2.5 ml FLUSH ASDIRECTED PRN PRN Reason: Keep Vein Open Sodium Chloride (Sodium Chloride 0.9% 10 Ml Sdv) 10 ml IV ASDIRECTED PRN PRN Reason: IV Use Sterile Water (Water For Irrigation,Sterile 1,000 Ml Container) 1,000 ml IRR ASDIRECTED PRN PRN Reason: delivery Discontinued Medications Ampicillin Sodium (Ampicillin 1 Gm Vial) Confirm Administered Dose 2 gm .ROUTE .STK-MED ONE Stop: 06/06/21 05:12 Ampicillin Sodium 2 gm/ Sodium (Chloride) 100 mls @ 200 mls/hr IV ONETIME ONE Stop: 06/06/21 05:29 Last Admin: 06/06/21 05:15 Dose: 200 mls/hr Documented by: Ropivacaine (Naropin 0.2%) Confirm Administered Dose 200 mls @ as directed .ROUTE .[facility]-MED ONE Stop: 06/06/21 05:36 - Pre-Procedure Checklist Attending Provider Aware: Yes Chart Reviewed: Yes Consent Signed: Yes Labs Reviewed: Yes VS/FHR Reviewed: Yes Patient Identification Confirmation Method: Reports: Verbal Patient Pt an Appropriate Candidate for the Planned Anesthesia: Yes Alternatives and Risks of Anesthesia Discussed w Pt/Guardian: Yes - Procedure Procedure Start Date: 06/06/21 Procedure Start Time: 05:[address]: Reports: Blood Pressure, Heart Rate, SPO2 Functional IV: Yes Safety Measures: Reports: Patient Identified, Procedure Verified, Site Verified, Procedure Time Out Patient Position: Reports: Sitting Prep: Reports: Betadine x3, Sterile Drape Local Anesthetic: Reports: Intradermal Wheal w Lidocaine 1% Regional Placement Level: Reports: L3-4 Needle: Reports: 17 g Touhy Approach: Reports: Midline Technique: Reports: IVETTE Plastic Syringe Parasthesia: Reports: None Fluid Obtained: Reports: None Test Dose Time: 05:42 Test Dose Medication: Reports: Lidocaine 1.5% w Epinephrine 1:200,000 Test Dose Response: Reports: Negative Loading Dose Time: 05:31 Loading Dose Medication: bupivicaine 0.25% 10cc Loading Dose Patient Position: sitting Continuous Infusion Start Time: 05:45 Continuous Infusion Medication: ropivicaine 0.2% Continuous Infusion Rate: 14 Continuous Infusion PCS Bolus Option: 4 Patient Position Post Placement: Reports: Supline/NARCISO VS and FHR Monitored in Unit Post Placement: Yes Procedure End Date: 06/06/21 Procedure End Time: 06:37
--- NOTE | 2021-06-06 05:56 | PCM.POSTAN ---
POST ANESTHESIA ASSESSMENT - MENTAL STATUS Mental Status: Alert, Oriented - RESPIRATORY Respiratory Status: Respiratory Rate WNL, Airway Patent, O2 Saturation Stable - CARDIOVASCULAR CV Status: Pulse Rate WNL, Blood Pressure Stable - GASTROINTESTINAL GI Status: No Symptoms - POST OP HYDRATION Hydration Status: Adequate & Stable
[2021-06-06] MEDS ORDERED: Oxytocin/0.9 % Sodium Chloride 30 UNIT/500 ML BAG ONE (06:02)
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
[2021-06-06] MEDS ORDERED: Benzocaine/Menthol 20%-0.5% Spray 78 GM Cannister TOP PRN (07:48)
[2021-06-06] MEDS ORDERED: Docusate Sodium 100 MG Cap PO PRN (07:48)
[2021-06-06] MEDS ORDERED: Acetaminophen 500 MG Tab PO PRN ×2 (07:48)
[2021-06-06] MEDS ORDERED: Lanolin 100% Cream 7 GM Tube TOP PRN (07:48)
[2021-06-06] MEDS ORDERED: oxyCODONE 5 MG Tab PO PRN (07:48)
[2021-06-06] MEDS ORDERED: Witch Hazel Medicated Pads 40/Jar TOP PRN (07:48)
[2021-06-06] MEDS ORDERED: Bisacodyl 10 MG Supp RECTAL PRN (07:48)
[2021-06-06] MEDS ORDERED: Ibuprofen 400 MG Tab PO PRN (07:48)
[2021-06-06] MEDS ORDERED: Ibuprofen 800 MG Tab PO PRN (07:48)
[2021-06-08 14:07] LABS: C.TRACHOMATIS BY TMA Negative (Negative); N.GONORRHOEAE BY TMA Negative (Negative)
--- NOTE | 2021-06-09 09:58 | PCM48HPAN ---
Post Anesthesia Note - EVALUATION WITHIN 48HRS OF ANESTHETIC Vital Signs in Normal Range: Yes Patient Participated in Evaluation: Yes Respiratory Function Stable: Yes Airway Patent: Yes Cardiovascular Function Stable: Yes Hydration Status Stable: Yes Pain Control Satisfactory: Yes Nausea and Vomiting Control Satisfactory: Yes Mental Status Recovered: Yes Vital Signs: Last Vital Signs Temp 96.9 F 06/06/21 15:30 Pulse 101 H 06/06/21 15:30 Resp 16 06/06/21 15:30 BP 143/83 H 06/06/21 15:30 Pulse Ox 98 06/06/21 15:30
== END 2021-06-06 16:45 | disposition home or self-care (01) | DRG 807 ==
LOC: MW.OBCHECK 04:21 → MW.OB 04:21 → OBSVTOIN 07:15 → MW.OBCHECK 07:17 → MW.OB 11:31
PROVIDERS: ADMIT Obstetrics & Gynecology; ATTEND Obstetrics & Gynecology
PROC: 10E0XZZ Delivery of Products of Conception, External Approach (ICD-10-PCS; principal; 2021-06-06)
PROC: 3E0R3BZ Introduction of Anesthetic Agent into Spinal Canal, Percutaneous Approach (ICD-10-PCS; 2021-06-06)
PROC: 00HU33Z Insertion of Infusion Device into Spinal Canal, Percutaneous Approach (ICD-10-PCS; 2021-06-06)
DX: O99.324 Drug use complicating childbirth (principal); Z37.0 Single live birth; F15.90 Other stimulant use, unspecified, uncomplicated; F12.90 Cannabis use, unspecified, uncomplicated; Z3A.00 Weeks of gestation of pregnancy not specified
CPT/HCPCS: 36415; 51702; 59025; 59409; 80305-QW; 81003; 85027; 86592; 86762; 86803; 86850; 86900; 86901; 87340; 87389; 87491; 87591; A9270-GY; J0290; J2590; J2795; J7120; U0002

== ENCOUNTER 2022-03-06 08:17 | Emergency (ER) | payer MEDICAID ==
[2022-03-06] MEDS ORDERED: predniSONE 20 MG Tab PO STA (08:38)
== END 2022-03-06 08:55 | disposition home or self-care (01) ==
LOC: MW.ED 08:17
DX: M26.622 Arthralgia of left temporomandibular joint (principal); F17.210 Nicotine dependence, cigarettes, uncomplicated
CPT/HCPCS: 99282; A9270